=== PATIENT | female | born 1990 | race Caucasian/White ===

== ENCOUNTER 2019-12-15 20:37 | Emergency (ER) | payer MEDICAID ==
[~2019-12-15] VITALS: Ht 157.5 cm; Wt 66.9 kg
[~2019-12-15 20:37] MED LIST: PRENATAL VITAMIN
[2019-12-15 21:09] VITALS: BP 116/74
== END 2019-12-15 21:09 | disposition home or self-care (01) ==
LOC: ED 20:37
DX: Z76.0 Encounter for issue of repeat prescription (principal)
CPT/HCPCS: 82962